=== PATIENT | male | born 1960 | race African-American/Black ===

== ENCOUNTER 2023-03-24 15:00 | Emergency (ER) | payer OTHER ==
[2023-03-24] MEDS ORDERED: Ibuprofen 200 MG TAB ONE (16:28)
[2023-03-24] MEDS ORDERED: diphenhydrAMINE 25 MG CAP ONE (16:28)
[2023-03-24 16:45] LABS: #Basophils 0.1 10x3/uL (0.0-0.2); #Eosinphils 0.5 10x3/uL (0.0-0.5); #Monocytes 0.7 10x3/uL (0.0-1.1); #Neutrophils 4.3 10x3/uL (1.5-8.4); %Basophils 0.8 % (0.0-2.0); %Eosinophils 7.3 % (0.0-6.0); %Lymphocytes 23.3 % (18.0-47.0); %Monocytes 9.7 % (0.0-10.0); %Neutrophils 58.2 % (40.0-75.0); Hematocrit 37.5 % (38.8-50.0); Mean Corpuscular Hemoglobin 28.4 pg (27.0-33.0); Mean Corpuscular Volume 88.9 fl (81.2-95.1); Mean Platelet Volume 11.3 fl (7.4-10.4); Platelet Count 188 10x3/uL (150-450); RBC Distribution Width 14.2 % (11.5-14.5); Red Blood Cell (RBC) Count 4.22 10x6/uL (4.32-5.72); White Blood Cell (WBC) Count 7.4 10x3/uL (3.5-10.5)
[2023-03-24 17:02] LABS: ALT (SGPT) 19 U/L (8-55); AST (SGOT) 13 U/L (5-34); Albumin 3.7 g/dL (3.4-4.8); Alkaline Phosphatase 69 U/L (40-110); Anion Gap 13 mmol/L (10-20); BUN (Urea Nitrogen) 15 mg/dL (8.4-25.7); Bilirubin, Total Less than 0.2 mg/dL (0.2-1.2); Calc. Creatinine Clearance 0 mL/min (70-130); Calcium 8.8 mg/dL (7.8-10.44); Carbon Dioxide 27 mmol/L (23-31); Chloride 105 mmol/L (98-107); Estimated GFR 97; Globulin 2.1 g/dL (2.4-3.5); Glucose 98 mg/dL (80-115); Potassium 4.4 mmol/L (3.5-5.1); Protein, Total 5.8 g/dL (5.8-8.1); Sodium 141 mmol/L (136-145)
[2023-03-24 17:08] LABS: Troponin I Less than 0.010 ng/mL (< 0.028)
== END 2023-03-24 17:46 | disposition home or self-care (01) ==
LOC: CSHERS 15:00
DX: M79.675 Pain in left toe(s) (principal); T43.595A Adverse effect of other antipsychotics and neuroleptics, initial encounter; F17.210 Nicotine dependence, cigarettes, uncomplicated
CPT/HCPCS: 36415; 36416; 70450; 80053; 84484; 85025; 85730; 93005